=== PATIENT | female | born 1955 | race Caucasian/White ===

== ENCOUNTER 2019-07-08 09:45 | Emergency (ER) | payer BC ==
[~2019-07-08] VITALS: Ht 170.2 cm; Wt 63.5 kg
--- NOTE | 2019-07-08 10:00 | NUR ---
PATIENT [id number], FROM HOME, S/P LIPPED AND FALL FROM STAIRS, -KO, C/O LEFT HIP PAIN. PATIENT CONNECTED TO MONITOR. WILL CONTINUE TO MONITOR ACCORDINGLY
--- NOTE | 2019-07-08 10:48 | NUR ---
VERIFIED WITH PATIENT. VERBALIZED THAT SHE IS NOT ALLERGIC TO ACETAMINOPHEN. ALLERGY LIST UPDATED
[2019-07-08] MEDS ORDERED: oxyCODONE/APAP (5/325 MG) 1 UDTAB TABLET ONE (10:59)
--- NOTE | 2019-07-08 10:59 | NUR ---
WITH ORDER FROM DR CASSIDY TO CHANGE PERCOCET 5/325 FROM 1 TAB TO 2 [address] CASSIDY AWARE OF HYDROCODONE ALLERGY FROM VICODIN. ORDER NOTED AND CARRIED OUT. WILL CONTINUE TO MONITOR
[2019-07-08] MEDS ORDERED: oxyCODONE/APAP (5/325 MG) 1 UDTAB TABLET PO ONE ×2 (11:00)
--- NOTE | 2019-07-08 12:20 | NUR ---
Patient discharged to home in stable condition. Written and verbal after care instructions given. Patient verbalizes understanding of instruction. Written prescriptions provided to patient
[2019-07-08 12:21] VITALS: BP 113/71
== END 2019-07-08 12:22 | disposition home or self-care (01) ==
LOC: ER 09:47
DX: S70.02XA Contusion of left hip, initial encounter (principal); S90.02XA Contusion of left ankle, initial encounter; S80.02XA Contusion of left knee, initial encounter; M79.7 Fibromyalgia; Z88.5 Allergy status to narcotic agent; Z88.6 Allergy status to analgesic agent; W01.0XXA Fall on same level from slipping, tripping and stumbling without subsequent striking against object, initial encounter; Y93.89 Activity, other specified; Y92.89 Other specified places as the place of occurrence of the external cause; Y99.8 Other external cause status
CPT/HCPCS: 73502; 73564-TC; 73610-TC